=== PATIENT | female | born 1995 | race Caucasian/White ===

== ENCOUNTER 2020-08-20 06:12 | Inpatient (IN) | payer OTHER ==
[~2020-08-20 06:12] MED LIST: ABILIFY5 MG PO; COLACE100 MG PO; MOTRIN600 MG PO; PRENATAL TABLE1 EAC1 PO
[2020-08-20 07:09] LABS: HCT 29.3 % (37.0-47.0); HGB 9.8 g/dl (12.5-16.0); MCH 31.4 pg (25.0-31.0); MCHC 33.4 g/dL (32.0-36.0); MCV 93.9 fL (78.0-100.0); MPV 11.4 fL (6.0-9.5); RBC 3.12 M/uL (4.20-5.40); RDW 12.7 % (11.5-14.0); WBC 9.2 K/uL (4.0-10.5)
[2020-08-20 07:13] LABS: BILIRUBIN NEGATIVE (NEGATIVE); BLOOD NEGATIVE Ery/uL (NEGATIVE); CLARITY CLEAR (CLEAR); COLOR YELLOW (YELLOW); GLUCOSE (U) NORMAL (NORMAL); LEUKOCYTES 1+ Leu/uL (NEGATIVE); NITRITE NEGATIVE (NEGATIVE); PROTEIN NEGATIVE (NEGATIVE); SPECIFIC GRAVITY 1.015 (1.001-1.030); UROBILINOGEN 0.2 mg/dL (0.2-1.0)
[2020-08-20 07:18] LABS: AMPHETAMINES NEGATIVE (NEGATIVE); BARBITURATES NEGATIVE (NEGATIVE); ECSTASY (MDMA) NEGATIVE (NEGATIVE); MARIJUANA (THC) NEGATIVE (NEGATIVE); METHADONE NEGATIVE (NEGATIVE); OPIATES NEGATIVE (NEGATIVE); OXYCODONE NEGATIVE (NEGATIVE)
[2020-08-20 07:23] LABS: BACTERIA TRACE
[2020-08-20 07:24] LABS: URINARY RBC RARE
[2020-08-21 05:40] LABS: HCT 29.4 % (37.0-47.0); HGB 9.7 g/dl (12.5-16.0); MCH 31.5 pg (25.0-31.0); MCV 95.5 fL (78.0-100.0); MPV 11.4 fL (6.0-9.5); RBC 3.08 M/uL (4.20-5.40); RDW 12.6 % (11.5-14.0)
[2020-08-21 05:42] LABS: WBC 16.9 K/uL (4.0-10.5)
--- NOTE | 2020-08-21 12:12 | NUR ---
RECEIVED [employer] REFERRAL THAT MOTHER WAS POS FOR THC ON TWO VISITS ON 04/09/20 & 07/08/20. MOTHER STATED THAT SHE SMOKED MARIJUANA THIS WAS THE ONLY THING THAT WOULD CONTROL HER NAUSEA AND VOMITING. MOTHER HAS TWO OTHER CHILDREN IN THE HOME, A GIRL, CIRAH AGE 5 AND A SON, AGE 16 MOS. SHE RESIDES WITH HER MOTHER IN A FOUR BEDROOM HOME WITH MODERN CONVIENCES. SHE STATES THAT SHE WORKS AT [employer]. SHE RECEIVES [employer] AND PASSPORT. SHE STATES THAT SHE HAS NOT HAD ANY INVOLVEMENT WITH [facility] IN THE PAST. SHE REPORTS NO HISTORY OF MENTAL HEALTH ISSUES. SHE STATES THAT SHE HAS CAR SEAT, BABY BED, CLOTHING DIAPERS ETC. SHE STATES THAT HER MOTHER IS SUPPORTIVE. ALLEGED FATHER IS MORE CERON, AGE 27. HE DOES NOT WANT TO SIGN A PATERNITY AFFIDAVIT, BUT WANTS A DNA TEST. SHE STATES THEY ARE INVOLVED. LEGAL NAME OF IS DEBBIE CERON. REFERRAL WAS MADE TO [facility] MOTHER HAS BEEN POSITIVE FOR ILLEGAL SUBSTANCE. REFERRAL NUMBER IS [id number].
== END 2020-08-22 13:17 | disposition home or self-care (01) | DRG 806 ==
LOC: FOB 06:12
PROVIDERS: ADMIT Obstetrics & Gynecology
PROC: 0HQ9XZZ Repair Perineum Skin, External Approach (ICD-10-PCS; principal; 2020-08-20)
PROC: 4A1HX4Z Monitoring of Products of Conception, Cardiac Electrical Activity, External Approach (ICD-10-PCS; principal; 2020-08-20)
PROC: 10E0XZZ Delivery of Products of Conception, External Approach (ICD-10-PCS; principal; 2020-08-20)
PROC: 3E033VJ Introduction of Other Hormone into Peripheral Vein, Percutaneous Approach (ICD-10-PCS; principal; 2020-08-20)
DX: O36.5930 Maternal care for other known or suspected poor fetal growth, third trimester, not applicable or unspecified (principal); O99.324 Drug use complicating childbirth; Z37.0 Single live birth; D62 Acute posthemorrhagic anemia; F12.90 Cannabis use, unspecified, uncomplicated; O71.82 Other specified trauma to perineum and vulva; Z3A.38 38 weeks gestation of pregnancy; Z20.822 Contact with and (suspected) exposure to COVID-19; O99.03 Anemia complicating the puerperium; D50.9 Iron deficiency anemia, unspecified; Z79.899 Other long term (current) drug therapy
CPT/HCPCS: 36415; 80305; 81001; J7120; U0002